=== PATIENT | female | born 1980 | race Caucasian/White ===

== ENCOUNTER → 2023-06-11 08:36 | Outpatient (CLI) | payer OTHER, SELFPAY ==
--- NOTE | 2023-06-11 | DI.US.S_ITS ---
LIMITED ULTRASOUND OF LEFT BREAST: 06/11/2023 CLINICAL: Patient returns today to evaluate an asymmetry in the left breast. Comparison is made to exams dated: 06/11/2023 mammogram - [facility], 04/01/2022 mammogram, 04/01/2022 ultrasound biopsy, 03/27/2022 ultrasound, and 03/27/2022 mammogram - Outside facility. Color flow and real-time ultrasound of the left breast 2 o'clock region were performed. There is a heterogenous patch of fibroglandular tissue in the left breast at 2 o'clock, 6 cm from the nipple measuring 3.1 cm x 0.7 cm x 3.4 cm. Previously this area measured 3.4 x 0.7 x 3.6 cm on outside ultrasound 03/27/2022, previously biopsy proven PASH. IMPRESSION: BENIGN Left breast 3.4 cm heterogenous fibroglandular tissue, slightly decreased in size since 03/27/2022 and corresponds to previously benign and concordant biopsy proven PASH. No mammographic or targeted sonographic evidence of malignancy. A 1 year screening mammogram is recommended. Findings and recommendations were conveyed to the patient during today's evaluation. This exam was interpreted at Station ID: [id number]. Electronically Signed By: Namrata Marquez M.D., PH.D eb/:06/12/2023 01:24:15 letter sent: Normal Exam Ultrasound BI-RADS: 2 Benign
--- NOTE | 2023-06-11 | DI.MG.S_ITS ---
BILATERAL DIGITAL DIAGNOSTIC MAMMOGRAM 3D/2D: 06/11/2023 CLINICAL: Patient returns for a 12 month follow up of the left breast, due for bilateral exam. Comparison is made to exams dated: 03/27/2022 ultrasound, 03/27/2022 mammogram, 03/13/2022 mammogram, 02/25/2021 mammogram, 04/01/2022 mammogram, and 04/01/2022 ultrasound biopsy - Outside facility. Both breasts are heterogeneously dense, which may obscure small masses (category c / 51-75% glandular tissue). There is a focal asymmetry in the left upper outer quadrant at 2 o'clock posterior depth corresponding to previously benign and concordant biopsy (PASH). Finding is stable since outside mammogram on 04/01/2022. No other significant masses, calcifications, or other findings are seen in either breast. IMPRESSION: INCOMPLETE: NEEDS ADDITIONAL IMAGING EVALUATION Left breast focal asymmetry corresponding to previously biopsy proven PASH, stable since 03/29/2022. Recommend further evaluation with targeted ultrasound, which is scheduled to immediately follow this exam. Based on the Tyrer Cuzick model (a risk assessment model) the patient's lifetime risk is 15.9% and her 10 year risk is 2.6%. According to the ACR, ACS, and NCCN guidelines, an annual breast MRI exam along with mammogram is recommended if the patient's lifetime risk is 20% or greater. This exam was interpreted at Station ID: [id number]. NOTE: For mammograms, a report in lay terms will be sent to the patient. Approximately 15% of breast malignancies will not be visualized mammographically. In the management of a palpable breast mass, a negative mammogram must not discourage biopsy of a clinically suspicious lesion. Electronically Signed By: Namrata Marquez M.D., PH.D eb/:06/11/2023 09:57:53 ACR BI-RADS Category 0: Incomplete [id number]
--- NOTE | 2023-06-11 | DI.US.S_ITS ---
PROCEDURE: US PELVIC COMPLETE INDICATIONS: 12 MONTH F/U TECHNIQUE: Real-time scanning was performed of the pelvic organs, with image documentation. Additional endovaginal scanning was necessary due to incomplete visualization of the adnexal and endometrial structures by transabdominal scanning. COMPARISON: None. FINDINGS: Uterus: Uterus is anteverted and normal in size at 9.2 x 4.0 x 6.1 cm. The myometrium is homogeneous. The endometrium measures 8 mm combined thickness. An IUD is present within the uterine fundus where expected. There is a right posterior intramural fibroid which measures 0.8 x 0.6 x 0.8 cm and is partially calcified. Ovaries: The right ovary measures 3.1 x 2.0 x 2.1 cm, with a calculated ovarian volume of 6.7 cc. The left ovary measures 2.7 x 1.7 x 1.5 cm, with a calculated ovarian volume of 3.5 cc. The ovaries have a normal sonographic appearance. Less than 12 follicles can be seen in each ovary. No adnexal masses are seen. Other: No pathologic free abdominal or pelvic fluid. IMPRESSION: 1. IUD in expected location in uterine fundus. 2. Small uterine fibroid. 3. Of note, no prior comparisons are available at the time of this dictation. If a prior comparison becomes available, an addendum can be issued at that time. We strive to produce accurate, complete, and clear reports of imaging services. To assist us in improving patient care, this report was composed using standard report templates and voice recognition software. Therefore, it may contain abnormal punctuation, insertions and/or omissions. Occasional wrong-word or sound-alike substitutions may occur. Though we review the report and make efforts to correct it, we do recommend that the report be read carefully in proper context to recognize any text inaccuracies. Dictated by: Yenny Edwards M.D. on 06/11/2023 at 12:21 Approved by: Yenny Edwards M.D. on 06/11/2023 at 12:23
== END ==
PROVIDERS: Family Provider Internal Medicine; Referring Provider Family Medicine
DX: R92.8 Other abnormal and inconclusive findings on diagnostic imaging of breast (principal); N64.89 Other specified disorders of breast; Z30.431 Encounter for routine checking of intrauterine contraceptive device; R10.2 Pelvic and perineal pain; D25.1 Intramural leiomyoma of uterus
CPT/HCPCS: 76642; 76830; 76856; 77066; G0279

== ENCOUNTER → 2023-11-01 09:57 | Outpatient (CLI) | payer OTHER, SELFPAY ==
[2023-11-01 19:54] LABS: Add Manual Diff / Slide Review NO; Basophils Absolute Auto 0 /uL (0-100); Basophils Percent Auto 0.6 % (0-2); Eosinophils Absolute Auto 0 /uL (0-450); Eosinophils Percent Auto 0.8 % (2-4); Hematocrit 37.2 % (36-46); Hemoglobin 12.7 g/dL (12.0-16.0); Lymphocytes Absolute Auto 1300 /uL (1100-4500); Lymphocytes Percent Auto 26.5 % (25-40); Mean Corpuscular HGB Conc 34.2 % (30-36); Mean Corpuscular Hemoglobin 30.2 PG (26-34); Mean Corpuscular Volume 88.4 fL (80-100); Monocytes Absolute Auto 300 /uL (0-900); Monocytes Percent Auto 6.7 % (3-14); Neutrophils Absolute Auto 3100 /uL (1500-7000); Neutrophils Percent Auto 65.4 % (50-75); Platelet Count 263 X10^3/uL (150-400); Red Cell Distribution Width 13.1 % (11.6-14.8); White Blood Cell Count 4.8 X10^3/uL (4.5-11.0)
[2023-11-01 20:02] LABS: Alanine Aminotransferase 26 IU/L (<35); Albumin 4.5 g/dL (3.5-5.0); Albumin Globulin Ratio 1.4 (1.0-2.8); Alkaline Phosphatase 72 U/L (38-126); Aspartate Aminotransferase 30 IU/L (14-36); BUN Creatinine Ratio 21.3 (6-22); Bilirubin Total 0.6 mg/dL (0.2-1.3); Blood Urea Nitrogen 13 mg/dL (7-17); Carbon Dioxide 27 mmol/L (22-32); Chloride 105 mmol/L (98-107); Cholesterol 190 mg/dL (140-199); Estimated Glomerular Filt Rate > 60 mL/min (>60); Globulin 3.2 g/dL (1.7-4.1); Glucose 88 mg/dL (70-100); HDL Cholesterol 52 mg/dL (40-60); HEMOLYSIS < 15 (0-50); LDL Cholesterol Calculated 122 mg/dL (<100); Potassium 4.2 mmol/L (3.4-5.1); Sodium 137 mmol/L (137-145); Total Protein 7.7 g/dL (6.3-8.2); Triglycerides 80 mg/dL (35-150)
== END ==
PROVIDERS: Family Provider Internal Medicine; PCP Family Medicine; Visit Provider Family Medicine
DX: Z13.6 Encounter for screening for cardiovascular disorders (principal); Z13.1 Encounter for screening for diabetes mellitus; F41.9 Anxiety disorder, unspecified
CPT/HCPCS: 80053; 80061; 84443; 85025

== ENCOUNTER → 2024-12-11 09:53 | Outpatient (CLI) | payer OTHER, SELFPAY ==
[2024-12-11 20:25] LABS: Add Manual Diff / Slide Review NO; Basophils Absolute Auto 0 /uL (0-100); Basophils Percent Auto 0.5 % (0-2); Eosinophils Absolute Auto 100 /uL (0-450); Eosinophils Percent Auto 2.1 % (2-4); Hematocrit 38.9 % (36-46); Lymphocytes Absolute Auto 1100 /uL (1100-4500); Lymphocytes Percent Auto 31.8 % (25-40); Mean Corpuscular HGB Conc 33.4 % (30-36); Mean Corpuscular Hemoglobin 29.9 PG (26-34); Mean Corpuscular Volume 89.5 fL (80-100); Monocytes Absolute Auto 200 /uL (0-900); Monocytes Percent Auto 6.1 % (3-14); Neutrophils Absolute Auto 2100 /uL (1500-7000); Neutrophils Percent Auto 59.5 % (50-75); Platelet Count 264 X10^3/uL (150-400); Red Blood Cell Count 4.35 X10^6/uL (4.0-5.2); Red Cell Distribution Width 13.5 % (11.6-14.8); White Blood Cell Count 3.5 X10^3/uL (4.5-11.0)
[2024-12-11 20:26] LABS: HEMOLYSIS < 15 (0-50); Iron 83 ug/dL (37-170)
[2024-12-11 20:32] LABS: Alanine Aminotransferase 18 IU/L (<35); Albumin 4.5 g/dL (3.5-5.0); Albumin Globulin Ratio 1.4 (1.0-2.8); Alkaline Phosphatase 77 U/L (38-126); Aspartate Aminotransferase 28 IU/L (14-36); BUN Creatinine Ratio 23.8 (6-22); Bilirubin Total 0.5 mg/dL (0.2-1.3); Blood Urea Nitrogen 15 mg/dL (7-17); Calcium 9.2 mg/dL (8.4-10.2); Carbon Dioxide 24 mmol/L (22-32); Chloride 104 mmol/L (98-107); Cholesterol 218 mg/dL (140-199); Estimated Glomerular Filt Rate > 60 mL/min (>60); Globulin 3.3 g/dL (1.7-4.1); Glucose 90 mg/dL (70-99); HDL Cholesterol 52 mg/dL (40-60); HEMOLYSIS < 15 (0-50); LDL Cholesterol Calculated 150 mg/dL (<100); Potassium 4.5 mmol/L (3.4-5.1); Sodium 137 mmol/L (137-145); Total Protein 7.8 g/dL (6.3-8.2); Triglycerides 81 mg/dL (35-150)
[2024-12-11 20:39] LABS: Percent Iron Saturation 26 % (15-50); Total Iron Binding Capacity 321 ug/dL (265-497); Transferrin 265 mg/dL (206-381)
[2024-12-11 20:46] LABS: Follicle Stimulating Hormone 4.81 mIU/mL
[2024-12-11 20:58] LABS: Thyroid Stimulating Hormone 1.57 uIU/mL (0.47-4.68)
[2024-12-11 21:02] LABS: Estradiol, Total 27.9 pg/mL; Ferritin 28 ng/mL (6-137)
== END ==
PROVIDERS: PCP Family Medicine; Visit Provider Family Medicine
DX: F41.9 Anxiety disorder, unspecified (principal); Z86.2 Personal history of diseases of the blood and blood-forming organs and certain disorders involving the immune mechanism; Z13.1 Encounter for screening for diabetes mellitus; X50.3XXA Overexertion from repetitive movements, initial encounter; S16.1XXA Strain of muscle, fascia and tendon at neck level, initial encounter; R61 Generalized hyperhidrosis; Z13.6 Encounter for screening for cardiovascular disorders
CPT/HCPCS: 80053; 80061; 82397; 82670; 82728; 83001; 83540; 83550; 84443; 85025